=== PATIENT | female | born 1965 | race Caucasian/White ===

== ENCOUNTER → 2016-08-19 | Outpatient (REF) | payer OTHER ==
[2016-08-19 11:00] LABS: BASO % 0.2 % (0.0-1.0); EOS # 0.2 K/mm3 (0.0-0.50); EOS % 2.6 % (0.0-3.0); LARGE UNSTAINED CELL # 0.1 K/mm3 (0.0-0.4); LARGE UNSTAINED CELL % 0.6 % (0.0-4.0); LYMPH # 0.7 K/mm3 (1.5-4.5); LYMPH % 8.5 % (24.0-44.0); MEAN CORPUSCULAR HEMOGLOBIN 31.1 pg (27.0-33.0); MEAN CORPUSCULAR HGB CONC 34.1 g/dl (32.0-36.5); MEAN CORPUSCULAR VOLUME 91.1 fl (80.0-96.0); MONO # 0.4 K/mm3 (0.0-0.8); MONO % 5.6 % (0.0-5.0); NEUTROPHILS # 6.4 K/mm3 (1.8-7.7); NEUTROPHILS % 82.5 % (36.0-66.0); PLATELET COUNT, AUTOMATED 260 k/mm3 (150-450); RED CELL DISTRIBUTION WIDTH 13.6 % (11.5-14.5); WHITE BLOOD COUNT 7.8 K/mm3 (4.0-10.0)
[2016-08-19 11:10] LABS: ANION GAP 11 MEQ/L (8-16); BLOOD UREA NITROGEN 14 MG/DL (7-18); CALCIUM LEVEL 8.2 MG/DL (8.5-10.1); CARBON DIOXIDE LEVEL 25 MEQ/L (21-32); CHLORIDE LEVEL 105 MEQ/L (98-107); CHOLESTEROL LEVEL 195 MG/DL (<200); CREATININE FOR GFR 0.71 MG/DL (0.55-1.02); FERRITIN 9 NG/ML (8-252); GLOMERULAR FILTRATION RATE > 60.0 (>58); GLUCOSE, FASTING 98 MG/DL (70-105); PERCENT SATURATION 16.8 % (13.2-37.4); POTASSIUM SERUM 4.1 MEQ/L (3.5-5.1); SODIUM LEVEL 141 MEQ/L (136-145); TOTAL IRON BINDING CAPACITY 404 UG/DL (250-450); TRIGLYCERIDES LEVEL 130 MG/DL (<150)
== END ==
LOC: M LABDRAW1 10:23
PROVIDERS: ATTEND Physician Assistant Medical
DX: Z00.00 Encounter for general adult medical examination without abnormal findings (principal); D64.9 Anemia, unspecified; E55.9 Vitamin D deficiency, unspecified

== ENCOUNTER → 2018-03-23 | Outpatient (REF) | payer OTHER ==
[2018-03-23 11:22] LABS: BASO % 0.5 % (0.0-1.0); EOS # 0.3 10^3/uL (0.0-0.50); HEMATOCRIT 34.9 % (36.0-47.0); IMMATURE GRANULOCYTE % 0.5 % (0-3.0); LYMPH # 1.6 10^3/uL (1.5-4.5); LYMPH % 27.5 % (24.0-44.0); MEAN CORPUSCULAR HEMOGLOBIN 27.1 pg (27.0-33.0); MEAN CORPUSCULAR HGB CONC 31.5 g/dl (32.0-36.5); MONO # 0.5 10^3/uL (0.0-0.8); MONO % 7.9 % (0.0-5.0); NEUTROPHILS # 3.4 10^3/uL (1.8-7.7); NEUTROPHILS % 58.6 % (36.0-66.0); PLATELET COUNT, AUTOMATED 345 10^3/uL (150-450); RED BLOOD COUNT 4.06 10^6/uL (4.00-5.40); RED CELL DISTRIBUTION WIDTH 15.6 % (11.5-14.5); WHITE BLOOD COUNT 5.8 10^3/uL (4.0-10.0)
[2018-03-23 12:33] LABS: ANION GAP 9 MEQ/L (8-16); BLOOD UREA NITROGEN 9 MG/DL (7-18); CALCIUM LEVEL 8.5 MG/DL (8.5-10.1); CARBON DIOXIDE LEVEL 25 MEQ/L (21-32); CHLORIDE LEVEL 107 MEQ/L (98-107); CREATININE FOR GFR 0.67 MG/DL (0.55-1.30); FREE T4 0.97 NG/DL (0.76-1.46); GLOMERULAR FILTRATION RATE > 60.0 (>51); GLUCOSE, FASTING 105 MG/DL (70-100); POTASSIUM SERUM 4.3 MEQ/L (3.5-5.1); SODIUM LEVEL 141 MEQ/L (136-145); TOTAL 25(OH) VITAMIN D 13.3 NG/ML (30.0-100.0)
== END ==
LOC: M LABDRAW1 10:57
DX: I10 Essential (primary) hypertension (principal); E55.9 Vitamin D deficiency, unspecified; R53.83 Other fatigue

== ENCOUNTER → 2018-05-09 | Outpatient (REF) | payer OTHER ==
[2018-05-12 14:15] LABS: HPV HYBRID CAPTURE II Negative (Negative)
== END ==
LOC: M LAB REF 13:26
DX: Z01.419 Encounter for gynecological examination (general) (routine) without abnormal findings (principal); Z11.51 Encounter for screening for human papillomavirus (HPV)

== ENCOUNTER → 2018-06-28 | Outpatient (CLI) | payer BC, OTHER ==
[~2018-06-28] MED LIST: HYDR25TAB PO; VITA50005 PO
[2018-06-28 18:49] LABS: HEMATOCRIT 37.5 % (36.0-47.0); HEMOGLOBIN 12.3 g/dl (12.0-15.5); MEAN CORPUSCULAR HEMOGLOBIN 27.9 pg (27.0-33.0); MEAN CORPUSCULAR HGB CONC 32.8 g/dl (32.0-36.5); PLATELET COUNT, AUTOMATED 320 10^3/uL (150-450); RED BLOOD COUNT 4.41 10^6/uL (4.00-5.40); WHITE BLOOD COUNT 7.4 10^3/uL (4.0-10.0)
[2018-06-28 19:13] LABS: INR 0.98; PROTHROMBIN TIME 13.1 SECONDS (12.1-14.4)
[2018-06-28 19:19] LABS: ALBUMIN 3.6 GM/DL (3.2-5.2); ALT/SGPT 37 U/L (12-78); BILIRUBIN,TOTAL 0.4 MG/DL (0.2-1.0); BLOOD UREA NITROGEN 9 MG/DL (7-18); CALCIUM LEVEL 8.5 MG/DL (8.5-10.1); CARBON DIOXIDE LEVEL 29 MEQ/L (21-32); CHLORIDE LEVEL 102 MEQ/L (98-107); CREATININE FOR GFR 0.56 MG/DL (0.55-1.30); GLOMERULAR FILTRATION RATE > 60.0 (>51); GLUCOSE, FASTING 90 MG/DL (70-100); SODIUM LEVEL 139 MEQ/L (136-145); TOTAL PROTEIN 7.6 GM/DL (6.4-8.2)
[2018-06-28 20:02] LABS: ERYTHROCYTE SEDIMENTATION RATE 49 mm/hr (0-30)
--- NOTE | 2018-06-29 02:27 | REP ---
Clinical: Preoperative assessment for arthroplasty . Comparison: None . Technique: PA and lateral. Findings: The mediastinum and cardiac silhouette are normal. The lung welsh are clear and without acute consolidation, effusion, or pneumothorax. The skeletal structures are intact and normal. Impression: 1. No acute cardiopulmonary process. Electronically Signed by Ramiro Arriaga MD 06/29/2018 02:18 A
--- NOTE | 2018-06-29 22:23 | ECGEPIP ---
Stationary ECG Study [facility] Test Date: 2018-06-28 Pat Name: GREGG LEE Department: Room: - Gender: F Intelligence Operations: RONALDO : 1965 Requested By: Sherice Rea PA-C. Order Number: [id number] Reading MD: Anand Rooney Measurements Intervals [place] Rate: 72 P: 21 AL: 163 QRS: 42 QRSD: 95 T: 34 QT: 399 QTc: 438 Interpretive Statements SINUS RHYTHM Early repolarization. No prior ECG available for comparison at the time of interpretation. Electronically Signed On 06-29-2018 22:23:25 EST by Anand Rooney
== END ==
LOC: M LAB 16:37
PROVIDERS: ATTEND Physician Assistant Medical
DX: Z01.818 Encounter for other preprocedural examination (principal); M16.11 Unilateral primary osteoarthritis, right hip

== ENCOUNTER 2018-07-11 09:47 | Inpatient (IN) | payer BC, OTHER ==
--- NOTE | 2018-07-01 08:59 | HPE ---
DATE OF ADMISSION: 07/11/2018 ATTENDING PHYSICIAN: Dr. Josiah Castanon. CHIEF COMPLAINT: Right hip pain and stiffness. HISTORY: This is a pleasant 53-year-old patient with progressively worsening right hip pain and stiffness who has failed to improve with conservative management. She has been consented for right total hip arthroplasty by Dr. Castanon. X-rays of the right hip show advanced degenerative changes. ALLERGIES: No known drug allergies. CURRENT MEDICATIONS: - Celebrex 100 mg - hydrochlorothiazide 12.5 mg - vitamin D 50,000 units PAST MEDICAL HISTORY: 1. Vitamin D deficiency. 2. Anemia. 3. Morbid obesity. 4. Osteoarthritis of multiple joints. PAST SURGICAL HISTORY: 1. Lumbar laminectomy. 2. Cholecystectomy. 3. section times two. 4. Left hip replacement. FAMILY HISTORY: Father - Alzheimer disease, . Mother - hypertension, heart disease, kidney disease, . SOCIAL HISTORY: Nonsmoker, occasional alcohol user. REVIEW OF SYSTEMS: The patient denies fever, chills, chest pain, shortness breath, nausea, vomiting, diarrhea, recent upper respiratory or urinary tract infections. She does report pain and stiffness of the right hip with weightbearing activities. PHYSICAL EXAMINATION: Vital Signs: Height 5 feet 5 inches, weight 240.8, temperature 97.6, blood pressure 148/90, pulse 62, respirations 16. The patient appears comfortable, in no acute distress. She is normocephalic, atraumatic. Neck: Supple and nontender with no lymphadenopathy or jugular venous distention (JVD). S1 andS2 auscultated with no murmurs, rubs or gallops. Lungs: Clear to auscultation bilaterally with no wheezes, rales or rhonchi. Abdomen: Soft, nontender. The right hip shows pain throughout range of motion. The overlying skin is intact with no rashes, erythema, ecchymosis or obvious deformity. The right lower extremity has intact neurovascular status. ELECTROCARDIOGRAM (EKG): Normal sinus rhythm with early repolarization. CHEST X-RAY: No acute cardiopulmonary process. LABORATORY DATA: White blood count 7.4, red blood count 4.41, hemoglobin 12.3, hematocrit 37.5, PT 13.1, INR 0.98. Sed rate 49, BUN 9, creatinine 0.56. PREOPERATIVE MEDICAL OPTIMIZATION: By Sherice Rea, completed and reviewed on the patient's chart today. IMPRESSION: Right hip osteoarthritis, symptomatic. PLAN: Consented for right total hip arthroplasty by Dr. Castanon.
[~2018-07-11] VITALS: Ht 165.1 cm; Wt 115.2 kg
[~2018-07-11 09:47] MED LIST changes: +ACETAMINOPHEN 500 MG TAB PO ONE; +LR 1,000 ML IV ONE
[2018-07-11] MEDS ORDERED: MUPI2OI (10:22)
[2018-07-11] MEDS ORDERED: PROPOFOL 200 MG/20 ML VIAL As Ordered ONE ×4 (11:45→14:54)
[2018-07-11] MEDS ORDERED: MIDAZOLAM INJ 2 MG/2 ML VIAL (J2250) As Ordered ONE ×2 (11:46→11:47)
[2018-07-11] MEDS ORDERED: fentaNYL 100 MCG/2 ML INJECTION (J3010) As Ordered ONE (11:47)
[2018-07-11] MEDS ORDERED: EPINEPHrine INJ 1 MG/ML 1ML AMP As Ordered ONE (12:35)
[2018-07-11] MEDS ORDERED: ceFAZolin 1GM INJ (J0690 PER 500MG) As Ordered ONE (12:35)
[2018-07-11] MEDS ORDERED: BUPIVACAINE/DEXTROSE 0.75% 2 ML AMP As Ordered ONE (12:37)
[2018-07-11] MEDS: MORPHINE 1MG/ML IN 0.9% NACL 100ML IV BAG IV PRN (15:30)
[2018-07-11] MEDS ORDERED: NALOXONE INJ 0.4 MG/1 ML VIAL (J2310) IV PRN (15:45)
[2018-07-11] MEDS ORDERED: fentaNYL 100 MCG/2 ML INJECTION (J3010) IV PRN (15:45)
[2018-07-11] MEDS ORDERED: LR 1,000 ML IV SCH (15:45)
[2018-07-11] MEDS ORDERED: diphenhydrAMINE INJ 50MG/ML VIAL (J1200) IV PRN (15:45)
[2018-07-11] MEDS ORDERED: MEPERIDINE INJ 25 MG/ML VIAL (J2175) IV PRN (15:45)
[2018-07-11] MEDS ORDERED: PERCOCET 5MG/325MG TAB PO PRN (15:45)
[2018-07-11] MEDS ORDERED: NALBUPHINE HCL 10 MG/ML AMP (J2300) IV PRN (15:45)
[2018-07-11] MEDS ORDERED: FLEET ENEMA PR PRN (15:45)
[2018-07-11] MEDS ORDERED: EPIDURAL/PCA KEYS XX PRN (15:45)
[2018-07-11] MEDS ORDERED: ONDANSETRON 4MG/2ML VIAL (J2405) IV PRN ×2 (15:45)
[2018-07-11] MEDS ORDERED: METOCLOPRAMIDE INJ 10MG/2ML VIAL (J2765) IV PRN (15:45)
[2018-07-11] MEDS ORDERED: MORPHINE 1MG/ML IN 0.9% NACL 100ML IV BAG As Ordered ONE (15:46)
[2018-07-11 16:45] VITALS: BP 111/61
[2018-07-11 17:15] VITALS: BP 114/64
[2018-07-11] MEDS: LR 1,000 ML IV SCH (17:21)
[2018-07-11 18:15] VITALS: BP 125/76
[2018-07-11 19:15] VITALS: BP 127/79
[2018-07-11 20:00] VITALS: BP 122/74
[2018-07-11 21:00] VITALS: BP 118/74
[2018-07-12] MEDS: LR 1,000 ML IV SCH (03:47)
[2018-07-12] MEDS: MORPHINE 1MG/ML IN 0.9% NACL 100ML IV BAG IV PRN (04:29)
[2018-07-12 06:00] VITALS: BP 141/63
[2018-07-12 06:20] LABS: HEMATOCRIT 28.7 % (36.0-47.0); HEMOGLOBIN 9.2 g/dl (12.0-15.5); MEAN CORPUSCULAR HEMOGLOBIN 27.7 pg (27.0-33.0); MEAN CORPUSCULAR HGB CONC 32.1 g/dl (32.0-36.5); MEAN CORPUSCULAR VOLUME 86.4 fl (80.0-96.0); PLATELET COUNT, AUTOMATED 278 10^3/uL (150-450); RED BLOOD COUNT 3.32 10^6/uL (4.00-5.40); WHITE BLOOD COUNT 8.8 10^3/uL (4.0-10.0)
[2018-07-12] MEDS ORDERED: PERCOCET 5MG/325MG TAB PO PRN ×2 (06:30)
[2018-07-12] MEDS: MOM 30ML SUSPENSION UDC PO SCH (08:25)
[2018-07-12] MEDS: SENOKOT S TAB PO SCH ×2 (08:26→20:28)
[2018-07-12] MEDS: MIRALAX *UNIT DOSE* 17GM PACKET PO SCH (08:26)
[2018-07-12] MEDS: ONDANSETRON 4 MG TAB (S0181) PO PRN ×3 (08:31→17:19)
[2018-07-12] MEDS ORDERED: XARE10TA PO (08:32)
[2018-07-12] MEDS ORDERED: PERC5TAB12 PO (08:32)
--- NOTE | 2018-07-12 09:06 | REP ---
RIGHT HIP, TWO VIEWS: HISTORY: Postop. The patient is status post right total hip replacement. There is no acute fracture or dislocation. Subcutaneous air and surgical kalpesh are present in the overlying soft tissue. IMPRESSION: The patient is status post right total hip replacement. There is anatomic alignment. Electronically Signed by Kenneth Fall MD 07/12/2018 09:58 A
--- NOTE | 2018-07-12 10:20 | RO ---
DATE OF PROCEDURE: 07/11/2018 PREPROCEDURE DIAGNOSIS: Right hip osteoarthritis. POSTPROCEDURE DIAGNOSIS: Right hip osteoarthritis. PROCEDURE: Right total hip arthroplasty using a size 5 standard off set [place] stem with a +5 neck and a 36 mm ceramic head with a 52 mm Gription cup with 36 mm Ultrex polyethylene. SURGEON: Dr. Crystal Castanon. TV PRODUCTION ASSISTANT: Mr. Antonio Hay PA-C. ANESTHESIA: Spinal. COMPLICATIONS: None. ESTIMATED BLOOD LOSS: 200 mL SPECIMENS: Femoral head. DESCRIPTION OF PROCEDURE: Antibiotics were given intravenously preoperatively and successful spinal and she was placed in the lateral decubitus position. [place] hip position was utilized. Down leg well-padded, especially the perineum. Neurovascular role was utilized. Right hip areas was carefully prepped and draped in the usual sterile fashion. After an appropriate time-out, a longitudinal incision was made for direct anterolateral approach to the hip. Bovie cautery was used to coagulate the crossing vessels down to the tensor fascia. The tensor fascia divided. Split the gluteus medius and anterior one-third and posterior two-third junction, and then dissected down to the gluteus minimus into the anterior hip capsule and carefully dissected the tissues off the anterior aspect of the femur and then was able to dislocate the hip anteriorly placed in the leg bag anteriorly. It is noteworthy that the patient had an elevated body mass index (BMI). She was quite obese and this operating was actually quite difficult. Soft tissues were very deep and exposure was very challenging. Mr. Hay, my sales operations assistant, was critical to the success of the surgery by helping to hold the hip in appropriate position and help with appropriate soft tissue retraction, dislocating the hip anteriorly, and reducing it as needed throughout the operation. Help to close the wound amongst many other procedures. This allowed me to perform the operating safely and smoothly and efficienty. I then identified the piriformis fossa. A starter reamer was utilized. Canal finder reamer was utilized followed by the lateralizing reamer and then we began reaming up to a size 5 reamer. Femoral neck osteotomy performed and broached up to a size 5. Calcar planar was performed. We then exposed the acetabulum and performed a labral excision 360 degrees then began reaming with a 46 mm reamer up to a 51. The size 52 trial fit nicely using an extramedullary alignment jig to help set our abduction inversion. But it was quite difficult because of the exposure and the very deep soft tissue envelope but the cup appeared to be in anatomic position. We then copiously irrigated out the acetabulum as we did several times throughout the operation. Placed the real 52 Gription cup using the extramedullary alignment jig to help us set the version and abduction. Irrigated. Placed the central hole eliminator and then the polyethylene. We then trialled with a #5 broach with first a 1.5. She had good stability with flexion and internal rotation and extension external rotation but there was a little bit of increased telescoping. We did trial the +5 and that gave her good stability and minimal telescoping. Thus we felt that was the appropriate size to use. We then removed the trial components, copiously pulsatile lavaged irrigated out the hip joint and the femoral canal and placed the real stem. Dried the trunion, place the +5 length neck x 36 mm diameter ceramic head onto the trunion after drying it thoroughly and then reduced the hip after irrigating. We then closed the anterior hip capsule and gluteus minimus back anatomically with interrupted #1 PDS suture. We then closed the gluteus medius back anatomically with interrupted #1 PDS sutures. Irrigated between layers. Closed the tensor fascia with interrupted #1 PDS and #1 running Stratafix. The deep soft tissues were copiously irrigated and then layered deep soft tissue envelope closure was performed because of the deep soft tissues with #2-0 PDS sutures and then kalpesh in the skin covered with an Optifoam dry sterile bulky dressing. She was then turned supine and transferred to the stretcher then to the recovery room in stable condition. There were no intraoperative complications.
[2018-07-12] MEDS ORDERED: traMADol 50 MG TAB PO PRN (13:30)
[2018-07-12] MEDS: ACETAMINOPHEN TAB 650MG DOSE (2X325MG) PO PRN ×2 (14:01→20:28)
[2018-07-12] MEDS: traMADol 50 MG TAB PO PRN ×2 (17:19→23:47)
[2018-07-12] MEDS ORDERED: RIVAROXABAN 10 MG TAB (XARELTO) PO SCH (18:00)
[2018-07-12 22:00] VITALS: BP 141/70
[2018-07-13 06:00] VITALS: BP 115/61
[2018-07-13] MEDS ORDERED: TRAM50TA2 PO (06:11)
[2018-07-13] MEDS ORDERED: ZOFR4TAB16 PO (06:11)
[2018-07-13] MEDS: traMADol 50 MG TAB PO PRN (06:28)
[2018-07-13 06:42] LABS: HEMATOCRIT 29.2 % (36.0-47.0); HEMOGLOBIN 9.5 g/dl (12.0-15.5); MEAN CORPUSCULAR HEMOGLOBIN 28.2 pg (27.0-33.0); MEAN CORPUSCULAR HGB CONC 32.5 g/dl (32.0-36.5); MEAN CORPUSCULAR VOLUME 86.6 fl (80.0-96.0); PLATELET COUNT, AUTOMATED 287 10^3/uL (150-450); RED BLOOD COUNT 3.37 10^6/uL (4.00-5.40); WHITE BLOOD COUNT 9.3 10^3/uL (4.0-10.0)
[2018-07-13] MEDS: MOM 30ML SUSPENSION UDC PO SCH (09:00)
[2018-07-13] MEDS: MIRALAX *UNIT DOSE* 17GM PACKET PO SCH (09:00)
[2018-07-13] MEDS: SENOKOT S TAB PO SCH (09:00)
[2018-07-13] MEDS: ACETAMINOPHEN TAB 650MG DOSE (2X325MG) PO PRN (10:05)
== END 2018-07-13 11:45 | disposition home or self-care (01) | DRG 301 ==
LOC: M OR 09:47 → M MS5PR 16:40
PROVIDERS: ADMIT Orthopaedic Surgery; ATTEND Orthopaedic Surgery
PROC: 0SR904Z Replacement of Right Hip Joint with Ceramic on Polyethylene Synthetic Substitute, Open Approach (ICD-10-PCS; principal; 2018-07-11 12:25)
DX: M16.11 Unilateral primary osteoarthritis, right hip (principal); Z68.41 Body mass index [BMI] 40.0-44.9, adult; E55.9 Vitamin D deficiency, unspecified; Z96.642 Presence of left artificial hip joint; E66.01 Morbid (severe) obesity due to excess calories; D64.9 Anemia, unspecified; Z79.899 Other long term (current) drug therapy; Z98.1 Arthrodesis status

== ENCOUNTER → 2019-01-25 | Outpatient (REF) | payer OTHER ==
[~2019-01-25] MED LIST changes: -ACETAMINOPHEN 500 MG TAB PO ONE; -LR 1,000 ML IV ONE; +MUPI2OI; +PERC5TAB12 PO; +TRAM50TA2 PO; +XARE10TA PO; +ZOFR4TAB16 PO
[2019-01-25 13:06] LABS: BASO % 0.4 % (0.0-1.0); EOS # 0.2 10^3/uL (0.0-0.50); EOS % 2.7 % (0.0-3.0); HEMATOCRIT 35.8 % (36.0-47.0); HEMOGLOBIN 11.4 g/dl (12.0-15.5); LYMPH # 1.5 10^3/uL (1.5-4.5); LYMPH % 21.4 % (24.0-44.0); MEAN CORPUSCULAR HEMOGLOBIN 27.7 pg (27.0-33.0); MEAN CORPUSCULAR HGB CONC 31.8 g/dl (32.0-36.5); MEAN CORPUSCULAR VOLUME 87.1 fl (80.0-96.0); MONO # 0.5 10^3/uL (0.0-0.8); MONO % 6.8 % (0.0-5.0); NEUTROPHILS # 4.8 10^3/uL (1.8-7.7); NEUTROPHILS % 68.4 % (36.0-66.0); PLATELET COUNT, AUTOMATED 303 10^3/uL (150-450); RED BLOOD COUNT 4.11 10^6/uL (4.00-5.40)
[2019-01-25 13:21] LABS: ALBUMIN 3.4 GM/DL (3.2-5.2); ALT/SGPT 53 U/L (12-78); BILIRUBIN,TOTAL 0.3 MG/DL (0.2-1.0); BLOOD UREA NITROGEN 12 MG/DL (7-18); CALCIUM LEVEL 8.8 MG/DL (8.5-10.1); CARBON DIOXIDE LEVEL 25 MEQ/L (21-32); CHLORIDE LEVEL 107 MEQ/L (98-107); CREATININE FOR GFR 0.62 MG/DL (0.55-1.30); GLOMERULAR FILTRATION RATE > 60.0 (>51); GLUCOSE, FASTING 108 MG/DL (70-100); POTASSIUM SERUM 3.8 MEQ/L (3.5-5.1); SODIUM LEVEL 141 MEQ/L (136-145); TOTAL PROTEIN 7.4 GM/DL (6.4-8.2)
== END ==
LOC: M LAB REF 12:43
PROVIDERS: ATTEND Physician Assistant Medical
DX: E86.0 Dehydration (principal)

== ENCOUNTER → 2019-12-05 | Outpatient (CLI) | payer OTHER ==
[2019-12-05 11:46] LABS: BLOOD UREA NITROGEN 10 MG/DL (7-18); CALCIUM LEVEL 8.9 MG/DL (8.5-10.1); CARBON DIOXIDE LEVEL 30 MEQ/L (21-32); CHLORIDE LEVEL 101 MEQ/L (98-107); CHOLESTEROL LEVEL 212 MG/DL (<200); CHOLESTEROL RISK RATIO 4.156 (<5); CREATININE FOR GFR 0.77 MG/DL (0.55-1.30); GLOMERULAR FILTRATION RATE > 60.0 (>51); GLUCOSE, FASTING 110 MG/DL (70-100); HDL CHOLESTEROL 51 MG/DL (>40); LDL CHOLESTEROL 109 MG/DL (<100); NON-HDL-C 161 MG/DL; POTASSIUM SERUM 3.8 MEQ/L (3.5-5.1); SODIUM LEVEL 138 MEQ/L (136-145); TOTAL 25(OH) VITAMIN D 18.1 NG/ML (30.0-100.0); TRIGLYCERIDES LEVEL 261 MG/DL (<150)
== END ==
LOC: M PLALAB 07:55
PROVIDERS: ATTEND Physician Assistant
DX: I10 Essential (primary) hypertension (principal); E55.9 Vitamin D deficiency, unspecified

== ENCOUNTER → 2020-02-28 | Outpatient (CLI) | payer OTHER ==
[2020-02-28 14:19] LABS: ALBUMIN 3.1 GM/DL (3.2-5.2); ALT/SGPT 48 U/L (12-78); BILIRUBIN,TOTAL 0.4 MG/DL (0.2-1.0); BLOOD UREA NITROGEN 12 MG/DL (7-18); CALCIUM LEVEL 8.6 MG/DL (8.5-10.1); CARBON DIOXIDE LEVEL 30 MEQ/L (21-32); CHLORIDE LEVEL 104 MEQ/L (98-107); CHOLESTEROL LEVEL 173 MG/DL (<200); CHOLESTEROL RISK RATIO 3.392 (<5); CREATININE FOR GFR 0.68 MG/DL (0.55-1.30); GLOMERULAR FILTRATION RATE > 60.0 (>51); GLUCOSE, FASTING 101 MG/DL (70-100); HDL CHOLESTEROL 51 MG/DL (>40); LDL CHOLESTEROL 92 MG/DL (<100); NON-HDL-C 122 MG/DL; POTASSIUM SERUM 4.1 MEQ/L (3.5-5.1); SODIUM LEVEL 137 MEQ/L (136-145); TRIGLYCERIDES LEVEL 151 MG/DL (<150)
[2020-02-28 14:21] LABS: TOTAL 25(OH) VITAMIN D 22.2 NG/ML (30.0-100.0)
[2020-02-28 14:31] LABS: HEMOGLOBIN A1c 5.6 %
== END ==
LOC: M PLALAB 09:56
PROVIDERS: ATTEND Physician Assistant
DX: I10 Essential (primary) hypertension (principal); E55.9 Vitamin D deficiency, unspecified; R73.01 Impaired fasting glucose

== ENCOUNTER → 2021-03-11 | Outpatient (CLI) | payer BC, OTHER ==
[~2021-03-11] MED LIST changes: +HYDR-3490 PO; -HYDR25TAB PO
[2021-03-11 13:39] LABS: BASO % 0.6 % (0.0-1.0); EOS # 0.2 10^3/uL (0.0-0.5); EOS % 3.3 % (0.0-3.0); HEMATOCRIT 34.6 % (36.0-47.0); HEMOGLOBIN 10.3 g/dl (12.0-15.5); LYMPH # 2.3 10^3/uL (1.5-5.0); LYMPH % 32.9 % (24.0-44.0); MEAN CORPUSCULAR HEMOGLOBIN 23.4 pg (27.0-33.0); MEAN CORPUSCULAR HGB CONC 29.8 g/dl (32.0-36.5); MEAN CORPUSCULAR VOLUME 78.6 fl (80.0-96.0); MONO # 0.6 10^3/uL (0.0-0.8); MONO % 8.2 % (2.0-8.0); NEUTROPHILS # 3.8 10^3/uL (1.5-8.5); NEUTROPHILS % 54.7 % (36.0-66.0); PLATELET COUNT, AUTOMATED 347 10^3/uL (150-450)
[2021-03-11 14:13] LABS: ALBUMIN 2.9 GM/DL (3.2-5.2); ALT/SGPT 42 U/L (12-78); BILIRUBIN,TOTAL 0.4 MG/DL (0.2-1.0); BLOOD UREA NITROGEN 9 MG/DL (7-18); CALCIUM LEVEL 8.4 MG/DL (8.5-10.1); CARBON DIOXIDE LEVEL 29 MEQ/L (21-32); CHLORIDE LEVEL 102 MEQ/L (98-107); CHOLESTEROL LEVEL 206 MG/DL (<200); CHOLESTEROL RISK RATIO 3.551 (<5); CREATININE FOR GFR 0.63 MG/DL (0.55-1.30); GLOMERULAR FILTRATION RATE > 60.0 (>51); GLUCOSE, FASTING 82 MG/DL (70-100); HDL CHOLESTEROL 58 MG/DL (>40); LDL CHOLESTEROL 119 MG/DL (<100); NON-HDL-C 148 MG/DL; POTASSIUM SERUM 4.3 MEQ/L (3.5-5.1); SODIUM LEVEL 137 MEQ/L (136-145); TOTAL 25(OH) VITAMIN D 21.2 NG/ML (30.0-100.0); TOTAL PROTEIN 6.9 GM/DL (6.4-8.2); TRIGLYCERIDES LEVEL 145 MG/DL (<150)
== END ==
LOC: M PLALAB 10:58
PROVIDERS: ATTEND Family Medicine
DX: Z00.00 Encounter for general adult medical examination without abnormal findings (principal); I10 Essential (primary) hypertension; E55.9 Vitamin D deficiency, unspecified

== ENCOUNTER → 2021-10-07 | Outpatient (CLI) | payer BC, OTHER | LOC: M CARPUL 10-02 08:21 | PROVIDERS: ATTEND Family Medicine | DX: R60.0 Localized edema (principal) ==

== ENCOUNTER → 2022-03-30 | Outpatient (CLI) | payer BC, OTHER | LOC: M WHC 10:55 | PROVIDERS: ATTEND Family Medicine | DX: Z12.31 Encounter for screening mammogram for malignant neoplasm of breast (principal) ==

== ENCOUNTER → 2022-04-14 | Outpatient (CLI) | payer BC, OTHER | LOC: M WHC 07:09 | PROVIDERS: ATTEND Internal Medicine Cardiovascular Disease | DX: E88.09 Other disorders of plasma-protein metabolism, not elsewhere classified (principal) ==

== ENCOUNTER → 2023-02-17 | Outpatient (REF) | payer BC, OTHER | LOC: M LAB REF 17:55 | PROVIDERS: ATTEND Nurse Practitioner Family | DX: Z12.4 Encounter for screening for malignant neoplasm of cervix (principal) ==

== ENCOUNTER → 2023-12-28 | Outpatient (CLI) | payer BC, OTHER ==
[2023-12-28 10:18] LABS: ALBUMIN 3.4 G/DL (3.2-5.2); ALKALINE PHOSPHATASE 75 U/L (46-116); ALT/SGPT 58 U/L (7.0-40); AST/SGOT 47 U/L (<34); BILIRUBIN,TOTAL 0.5 MG/DL (0.3-1.2); BLOOD UREA NITROGEN 11 MG/DL (9-23); CARBON DIOXIDE LEVEL 28 MMOL/L (20-31); CHLORIDE LEVEL 103 MMOL/L (98-107); CHOLESTEROL LEVEL 190 MG/DL (<200); CHOLESTEROL RISK RATIO 3.57 (<5); CREATININE FOR GFR 0.59 MG/DL (0.55-1.30); GLOMERULAR FILTRATION RATE > 60.0 (>51); GLUCOSE, FASTING 116 MG/DL (60-100); HDL CHOLESTEROL 53.1 MG/DL (>40); LDL CHOLESTEROL 98.5 MG/DL (<100); NON-HDL-C 136.9 MG/DL; POTASSIUM SERUM 3.7 MMOL/L (3.5-5.1); SODIUM LEVEL 139 MMOL/L (136-145); TOTAL PROTEIN 6.8 G/DL (5.7-8.2); TRIGLYCERIDES LEVEL 192 MG/DL (<150)
[2023-12-28 10:34] LABS: CREATININE, URINE 82.7 MG/DL; MAU/CREAT RATIO 9.6 MCG/MG (0.0-30.0)
[2023-12-28 11:11] LABS: HEMOGLOBIN A1c 5.2 % (4.0-6.0)
== END ==
LOC: M PLALAB 07:43
PROVIDERS: ATTEND Nurse Practitioner Family
DX: I10 Essential (primary) hypertension (principal)

== ENCOUNTER → 2023-12-28 | Outpatient (CLI) | payer BC, OTHER ==
[2023-12-28 10:58] LABS: BASO % 0.3 % (0.0-1.0); EOS # 0.3 10^3/uL (0.0-0.5); EOS % 4.6 % (0.0-3.0); HEMATOCRIT 37.1 % (36.0-47.0); HEMOGLOBIN 12.5 g/dl (12.0-15.5); LYMPH # 2.2 10^3/uL (1.5-5.0); LYMPH % 36.9 % (24.0-44.0); MEAN CORPUSCULAR HEMOGLOBIN 29.4 pg (27.0-33.0); MEAN CORPUSCULAR HGB CONC 33.7 g/dl (32.0-36.5); MEAN CORPUSCULAR VOLUME 87.3 fl (80.0-96.0); MONO # 0.4 10^3/uL (0.0-0.8); MONO % 7.1 % (2.0-8.0); NEUTROPHILS % 50.9 % (36.0-66.0); PLATELET COUNT, AUTOMATED 258 10^3/uL (150-450); RED BLOOD COUNT 4.25 10^6/uL (4.00-5.40); WHITE BLOOD COUNT 5.9 10^3/uL (4.0-10.0)
[2023-12-28 11:04] LABS: ERYTHROCYTE SEDIMENTATION RATE 38 mm/hr (0-30)
[2023-12-28 11:21] LABS: ALBUMIN 3.4 G/DL (3.2-5.2); ALKALINE PHOSPHATASE 73 U/L (46-116); ALT/SGPT 55 U/L (7.0-40); AST/SGOT 47 U/L (<34); BILIRUBIN,DIRECT 0.2 MG/DL (<0.4); BILIRUBIN,TOTAL 0.5 MG/DL (0.3-1.2); TOTAL PROTEIN 6.8 G/DL (5.7-8.2)
[2023-12-29 12:44] LABS: CRYOGLOBULINS NEGATIVE (NEGATIVE)
== END ==
LOC: M PLALAB 07:41
PROVIDERS: ATTEND Physician Assistant
DX: L02.416 Cutaneous abscess of left lower limb (principal)

== ENCOUNTER → 2024-02-04 | Outpatient (CLI) | payer BC ==
[2024-02-04 11:23] LABS: C REACTIVE PROTEIN QUANTITATIV 2.6 MG/DL (<1.0)
[2024-02-04 11:25] LABS: ALBUMIN 3.4 G/DL (3.2-5.2); BILIRUBIN,DIRECT 0.2 MG/DL (<0.4); BILIRUBIN,TOTAL 0.6 MG/DL (0.3-1.2); TOTAL PROTEIN 7.2 G/DL (5.7-8.2)
== END ==
LOC: M PLALAB 07:40
PROVIDERS: ATTEND Physician Assistant
DX: L02.416 Cutaneous abscess of left lower limb (principal)

== ENCOUNTER → 2024-10-13 | Outpatient (CLI) | payer BC | LOC: M WHC 07:24 | PROVIDERS: ATTEND Nurse Practitioner Family | DX: Z12.31 Encounter for screening mammogram for malignant neoplasm of breast (principal) ==

== ENCOUNTER → 2025-05-22 | Outpatient (CLI) | payer BC | LOC: M WUC 09:03 | PROVIDERS: ATTEND Physician Assistant | DX: S40.012A Contusion of left shoulder, initial encounter (principal); W18.30XA Fall on same level, unspecified, initial encounter; Y92.009 Unspecified place in unspecified non-institutional (private) residence as the place of occurrence of the external cause ==